=== PATIENT | male | born 1950 | race African-American/Black ===

== ENCOUNTER 2017-04-13 10:23 | Emergency (ER) | payer MEDICARE, MEDICAID ==
[~2017-04-13] VITALS: Ht 175.3 cm; Wt 65.0 kg
[2017-04-13] MEDS ORDERED: KETOROLAC 60MG/2ML VIAL IM ONE (11:15)
[2017-04-13 12:58] VITALS: BP 142/86
== END 2017-04-13 12:59 | disposition home or self-care (01) ==
LOC: ER 10:38
DX: G89.29 Other chronic pain (principal); M79.642 Pain in left hand; M79.641 Pain in right hand; M54.2 Cervicalgia; M25.562 Pain in left knee; M25.561 Pain in right knee; M19.90 Unspecified osteoarthritis, unspecified site
CPT/HCPCS: 96372; 99283; J1885